=== PATIENT | female | born 1990 | race Hispanic/Latino ===

== ENCOUNTER 2024-10-23 10:31 | Emergency (ER) | payer SELFPAY ==
[~2024-10-23] VITALS: Ht 165.1 cm; Wt 92.0 kg
[2024-10-23] MEDS ORDERED: HYDROmorphone HCL 2 MG/AMP IM ONE (11:50)
[2024-10-23] MEDS ORDERED: GABAPENTIN 300 MG/CAP PO ONE (11:50)
[2024-10-23] MEDS ORDERED: ONDANSETRON 4 MG/TAB ODT PO ONE (11:50)
[2024-10-23] MEDS ORDERED: DEXAMETHASON6 MG PO (11:54)
[2024-10-23] MEDS ORDERED: GABAPENTIN300 M2 PO (11:54)
[2024-10-23] MEDS ORDERED: HYDROCO/APAP1 T10 PO (11:58)
[2024-10-23] MEDS ORDERED: NARCAN4 MG/0.1 M (11:58)
[2024-10-23 12:43] VITALS: BP 112/70
== END 2024-10-23 12:48 | disposition home or self-care (01) | DRG 552 ==
LOC: ED 10:31
DX: M54.32 Sciatica, left side (principal)
CPT/HCPCS: J1171